=== PATIENT | male | born 1950 | race Caucasian/White ===

== ENCOUNTER 2017-03-20 19:42 | Emergency (ER) | payer MEDICARE, OTHER ==
--- NOTE | 2017-03-20 20:02 | ED Physician Chart ---
Chief Complaint/HPI - Patient Information Date Seen:: 03/20/17 Time Seen:: 20:00 Chief Complaint:: Dental pain. History of Present Illness:: Pt was brought in by ambulance because of chronic toothache, especially in upper jaw. No fever. No N/V/D. Pt otherwise feels well without subjective complaint. Allergies:: Allergies Allergy/AdvReac Type Severity Reaction Status Date / Time No Known Allergies Allergy Verified 03/20/17 19:54 Vitals:: Vital Signs - 8 hr 03/20/17 19:45 Temp 98.0 F HR 90 RR 18 BP 140/105 O2 Sat % 97 Historian:: Patient Family MD/PCP:: unknown LMP:: N/A Review:: Nurse's Note Reviewed Review of Systems - Review of Systems General/Constitutional: No fever, No chills, No weight loss, No weakness, No diaphoresis, No edema, No loss of appetite Skin: No skin lesions, No rash, No bruising Head: No headache, No light-headedness Eyes: No loss of vision, No pain, No diplopia ENT: No earache, No nasal drainage, No sore throat, Other (Toothache.) Neck: No neck pain, No swelling, No thyromegaly, No stiffness, No mass noted Cardio Vascular: No chest pain, No palpitations Pulmonary: No SOB, No cough, No wheezing GI: No nausea, No vomiting, No diarrhea, No pain Musculoskeletal: No bone or joint pain, No back pain, No muscle pain Endocrine: No polyuria, No polydipsia Psychiatric: No prior psych history Hematopoietic: No bruising, No lymphadenopathy Allergic/Immuno: No urticaria, No angioedema Neurological: No syncope, No focal symptoms, No weakness, No paresthesia, No headache, No dizziness, No confusion Past Medical History - Past Medical History Past Medical History: Other (Tic disorder.) Family History: None Social History: Smoker (4-5 cigarets daily. Pt has been informed about health risks associated with chronic tobacco use and has been advised to quit. Pt has been encouraged to enroll in a smoking cessation program. Pt acknowledges understanding.), No Alcohol, No Drug Use, Single, Lives Alone Employment:: unemployed. Surgical History: None Psychiatricy History: None Medication: None Family Medical History - Family Member Mother History Unknown: Yes Physical Exam - Physical Examination General/Constitutional: Awake, Well-developed, well-nourished, Alert, No distress, Non-toxic appearing Other Gen/Cons comments:: Breathes comfortably, speaks clearly, and interacts normally. Pt has intermittent involuntary coarse body movements c/w tic. 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 Head: Atraumatic Eyes: Lids, conjuctiva normal, PERRL, EOMI Skin: Nl inspection, No rash, No skin lesions, No ecchymosis, Well hydrated, No lymphadenopathy ENMT: External ears, nose nl, Nasal exam nl, Oropharynx nl Other ENMT comments:: Poor dentition with multiple missing teeth. Left upper first molar tooth has partial loss with discoloration. No exudate. Neck: Nontender, Full ROM w/o pain, No nuchal rigidity, No mass, No stridor Respiratory: Nl effort/Exclusion, Clear to Auscultation, No Wheeze/Rhonchi/Rales Cardio Vascular: RRR, No murmur, gallop, rubs GI: No tenderness/rebounding/guarding, No organomegaly, Normal BS's, Nondistended Extremities: No edema Neuro/Psych: Alert/oriented (oriented x 3.), No focal deficits ED Septic Shock - . Is Septic Shock (SBP<90, OR Lactate>4 mmol\L) present?: No - <6hrs of presentation: Vital Signs: Vital Signs - 8 hr 03/20/17 19:45 Temp 98.0 F HR 90 RR 18 BP 140/105 O2 Sat % 97 Reassessment (Disposition) - Reassessment Reassessment:: 2119 Pt feels much better. Toothache has subsided. Pt has been taking po well without N/V/D. Pt can ambulate steadily without assistance without difficulty. Pt requests to leave now and does not want further observation/management in hospital. Aftercare instructions have been given. Reassessment Condition:: Improved - Diagnosis Diagnosis:: Dental pain related to pulpitis, stable and improved. Tic disorder, stable and improved. Pt is now steady without significant involuntary body movements. - Aftercare/Follow up Instructions Aftercare/Follow-Up Instructions:: Refer to Discharge Instructions Notes:: Avoid extreme cold or hot food or beverages. May take Tylenol 500 mg tab one tab po q6h prn pain. F/U with dentist of pt's choice in one day for recheck and further management of pt's dental condition. F/U with Dr. Hi or PCP of pt's choice also in one day for recheck. Return to ER immediately if condition worsens or if any further questions/problems. Medication Prescribed:: Clindamycin 300 mg tab one tab po q6h for 10 days. D-40 R-0 - Patient Disposition Discharge/Transfer:: Home Time:: 21:25 Condition at Disposition:: Stable, Improved ED Discharge Plan - Patient Disposition Admit/Discharge/Transfer: PT DISCHARGED HOME Instructions: Dental Pain, [id number] Additional Instructions: follow up with your primary medical doctor, dentis or go to a [facility] may take over the counter tylenol or motrin as directed for pain.
== END 2017-03-20 21:10 | disposition home or self-care (01) ==
LOC: ER 19:42
DX: K04.01 Reversible pulpitis (principal); F95.9 Tic disorder, unspecified; F17.210 Nicotine dependence, cigarettes, uncomplicated
CPT/HCPCS: 99283; 96372; J1885; Z7502